=== PATIENT | female | born 1970 | race Caucasian/White ===

== ENCOUNTER → 2020-02-07 07:24 | Outpatient (CLI) | payer BC, SELFPAY ==
--- NOTE | ~2020-02-07 | XR_ITS ---
EXAMINATION: XR chest 2V 02/07/2020 07:41 INDICATION: Chest pain PROCEDURE: 2 view chest COMPARISON: No prior studies for comparison. FINDINGS: The lungs are clear. The cardiomediastinal silhouette is within normal limits. There are no pleural effusions. There is no pneumothorax suspected. IMPRESSION: 1: NO ACUTE CARDIOPULMONARY DISEASE. Reviewed, dictated and finalized at location B.
== END ==
PROVIDERS: PCP Internal Medicine; Visit Provider Clinical Nurse Specialist
DX: R07.89 Other chest pain (principal)
CPT/HCPCS: 71046

== ENCOUNTER 2020-02-16 09:45 | Outpatient (CLI) | payer BC, SELFPAY ==
--- NOTE | 2020-02-16 09:52 | ECG_ITS ---
Measurements Intervals [place] Rate: 64 P: 60 SD: 171 QRS: 42 QRSD: 84 T: 51 QT: 391 QTc: 403 Interpretive Statements SINUS RHYTHM NORMAL ECG Electronically Signed On 02-16-2020 10:07:39 CDT by Aris Jeronimo D.O.
== END 2020-02-16 09:46 | disposition home or self-care (01) ==
PROVIDERS: PCP Internal Medicine; Visit Provider Clinical Nurse Specialist
DX: R94.31 Abnormal electrocardiogram [ECG] [EKG] (principal)
CPT/HCPCS: 93005

== ENCOUNTER 2020-02-26 08:19 | Outpatient (CLI) | payer BC, SELFPAY ==
--- NOTE | 2020-02-26 08:33 | ECHO_ITS ---
Patient Info Name: Julieta Londono Age: 50 years : 1970 Gender: Female Ht: 64 in Wt: 180 lbs BSA: 1.95 m2 HR: 66 bpm BP: 120 / 83 mmHg Heart Rhythm: Sinus Rhythm Technical Quality: Good Exam Date: 02/26/2020 8:41 AM Exam Location: [facility] Pulmonary Patient Status: Outpatient Admit Date: 02/26/2020 Staff Ordering Physician: Cristina Reece Staple Shear Operator: Martha Mcqueen RDCS Attending Provider: Cristina Reece Referring Physician: Shanell STEPHENS; Exam Type: CA echo doppler color flow Study Info Indications - ABN EKG Complete two-dimensional, color flow and Doppler transthoracic echocardiogram is performed. Summary 1. Left ventricular chamber dimension is normal. 2. Left ventricular systolic function is normal, estimated at 60-65%. 3. The left ventricular diastolic function is normal. 4. E/e' 8 is minimally elevated. 5. There is trace mitral valve regurgitation. 6. No pulmonary hypertension, estimated pulmonary arterial systolic pressure is 23 mmHg. Left Ventricle E/e' 8 is minimally elevated. Left ventricular chamber dimension is normal. Left ventricular systolic function is normal, estimated at 60-65%. The left ventricular diastolic function is normal. Right Ventricle Right ventricular chamber dimension is normal. Right ventricular systolic function is normal. Left Atria Left atrial chamber dimension is normal. Right Atria Right atrial chamber dimension is normal. Aortic Valve The aortic valve is trileaflet. There is no aortic valve stenosis. There is no aortic valve regurgitation. Pulmonic Valve There is no pulmonic regurgitation. Mitral Valve There is no mitral valve stenosis. There is trace mitral valve regurgitation. Tricuspid Valve There is no tricuspid valve regurgitation. No pulmonary hypertension, estimated pulmonary arterial systolic pressure is 23 mmHg. Pericardium/Pleural There is no pericardial effusion. Inferior Vena Cava Normal inferior vena cava with >50% collapse upon inspiration consistent with normal right atrial pressure, 5 mmHg. Aorta The aortic root size at the sinus of Valsalva is normal. Left Ventricular Outflow Tract Name Value Normal LVOT 2D LVOT Diameter 2.0 cm LVOT Doppler LVOT Peak Gradient 4 mmHg LVOT Mean Gradient 2 mmHg LVOT VTI 19 cm LVOT VTI/AV VTI Ratio 0.9 LVOT Stroke Volume 62 ml LVOT CO 13.2 l/min LVOT CI 6.8 l/min/m2 Pulmonic Valve Name Value Normal PV Doppler PV Peak Gradient 2 mmHg Mitral Valve Name Value
--- NOTE | 2020-02-26 08:33 | EST_ITS ---
Patient Info Name: Julieta Londono Age: 50 years : 1970 Gender: Female Ht: 64 in Wt: 180 lbs BSA: 1.95 m2 Exam Date: 02/26/2020 9:56 AM Exam Location: [facility] Stress Patient Status: Outpatient Admit Date: 02/26/2020 Staff Ordering Physician: Cristina Reece Attending Provider: Cristina Reece Exercise Technologist: Mery Iraheta RDCS Exercise Physician: Aris Jeronimo DO Exam Type: CA stress test treadmill Study Info Indications R94.31 - Abnormal electrocardiogram ECG EKG A treadmill exercise stress test was performed. Summary 1. 1. Negative Jackson exercise stress test for ischemic ST changes by ECG criteria. 2. 2. Good functional capacity, achieving 10 METs of workload. 3. 3. Appropriate HR response to exercise. 4. 4. Appropriate HR recovery at 1 minute post exercise. 5. 5. No imaging with stress testing. 6. 6. Patient informed of the above results. Protocol: [place] Stress ECG Details Stage: REST Duration (min): 7 min : 34 sec Speed (mph): 0.0 Grade (%): 0 HR (bpm): 62 SBP (mmHg): 119 DBP (mmHg): 54 METS: --- Stage: REST Duration (min): 8 min : 41 sec Speed (mph): 0.0 Grade (%): 0 HR (bpm): 70 SBP (mmHg): 119 DBP (mmHg): 54 METS: --- Stage: STAGE 1 Duration (min): 1 min : 0 sec Speed (mph): 1.7 Grade (%): 10 HR (bpm): 89 SBP (mmHg): 119 DBP (mmHg): 54 METS: --- Stage: STAGE 1 Duration (min): 2 min : 0 sec Speed (mph): 1.7 Grade (%): 10 HR (bpm): 95 SBP (mmHg): 119 DBP (mmHg): 54 METS: --- Stage: STAGE 1 Duration (min): 3 min : 0 sec Speed (mph): 1.7 Grade (%): 10 HR (bpm): 96 SBP (mmHg): 161 DBP (mmHg): 76 METS: --- Stage: STAGE 2 Duration (min): 1 min : 0 sec Speed (mph): 2.5 Grade (%): 12 HR (bpm): 108 SBP (mmHg): 161 DBP (mmHg): 76 METS: --- Stage: STAGE 2 Duration (min): 2 min : 0 sec Speed (mph): 2.5 Grade (%): 12 HR (bpm): 118 SBP (mmHg): 156 DBP (mmHg): 83 METS: --- Stage: STAGE 2 Duration (min): 3 min : 0 sec Speed (mph): 2.5 Grade (%): 12 HR (bpm): 117 SBP (mmHg): 156 DBP (mmHg): 83 METS: --- Stage: STAGE 3 Duration (min): 1 min : 0 sec Speed (mph): 3.4 Grade (%): 14 HR (bpm): 129 SBP (mmHg): 151 DBP (mmHg): 91 METS: --- Stage: STAGE 3 Duration (min): 2 min : 0 sec Speed (mph): 3.4 Grade (%): 14 HR (bpm): 139 SBP (mmHg): 151 DBP (mmHg): 91 METS: --- Stage: STAGE 3 Duration (min): 3 min : 0 sec Speed (mph): 3.4 Grade (%): 14 HR (bpm): 149 SBP (mmHg): 159 DBP (mmHg): 91 METS: --- Stage: RECOVERY Duration (min): 0 min : 59 sec Speed (mph): 0.0 Grade (%): 0 HR (bpm): 131 SBP (mmHg): 159 DBP (mmHg): 91 METS: --- Stage: RECOVERY Duration (min): 1 min : 59 se
== END 2020-02-26 08:20 | disposition home or self-care (01) ==
PROVIDERS: PCP Internal Medicine; Visit Provider Clinical Nurse Specialist
DX: R94.31 Abnormal electrocardiogram [ECG] [EKG] (principal)
CPT/HCPCS: 93017; 93306

== ENCOUNTER 2020-03-12 02:02 | Outpatient (CLI) | payer BC, SELFPAY ==
[2020-03-12 18:53] LABS: SARS-CoV-2 RNA PCR Negative
== END 2020-03-12 02:03 | disposition home or self-care (01) ==
LOC: ANHCOVIDDT 02:02
PROVIDERS: PCP Internal Medicine; Visit Provider Internal Medicine Gastroenterology
DX: Z01.812 Encounter for preprocedural laboratory examination (principal); Z20.828 Contact with and (suspected) exposure to other viral communicable diseases
CPT/HCPCS: 87635; C9803; U0003

== ENCOUNTER 2020-03-14 00:41 | Day surgery (SDC) | payer BC, SELFPAY ==
[2020-03-06 15:33] VITALS: BMI 18.9
[2020-03-14 09:34] VITALS: BP 118/80; PULSE 59; RESP 16; TEMP 36.6; O2SAT 99; BMI 31.0
--- NOTE | 2020-03-14 09:42 | PM.HPGS ---
History of Present Illness History of Present Illness Consent: Risks, benefits, and alternatives have been discussed and questions answered. Patient agrees to proceed with procedure. Chief complaint: Reflux Narrative: Julieta Londono is a 50 year old W female referred for EGD secondary to chronic acid reflux disease. Patient with water brash. He says this is worse when she bends over. She does have the head of bed elevated does any prior to recumbency. She had been on Prilosec [id number] this did not work anymore and she was switched to Pepcid. She denies any dysphagia odynophagia. She has no known food allergies. She has never had EGD in the past. She had a colonoscopy 5 years ago which was normal. Patient did have cardiac evaluation which was negative. [facility] Past Medical History Medical History Chronic GERD Headache, migraine History of hemorrhoids Iron deficiency anemia Shingles Surgical History Surgical History H/O tubal ligation H/O: hysterectomy Family History Family History (Updated 02/05/20 @ 16:17 by Brittney Duenas CMA) Father Hyperlipidemia Dementia Social History Social History Smoking status: Never smoker Alcohol intake: current Meds Home Medications and Allergies Home Medications Medication Instructions Recorded Confirmed Type cetirizine 10 mg tablet 10 mg PO DAILY 02/05/20 03/06/20 History famotidine 20 mg tablet 20 mg PO DAILY #90 tablet 02/06/20 03/06/20 Rx topiramate 50 mg tablet 50 mg PO DAILY #90 tablet 02/06/20 03/06/20 Rx sumatriptan succinate 100 mg PO .COMPLEX PRN 03/06/20 03/06/20 History Allergies Allergy/AdvReac Type Severity Reaction Status Date / Time No Known Allergies Allergy Unknown Verified 03/14/20 09:32 Vital Signs Vital Signs - 24 hr 03/14/20 09:34 Temperature 36.6 C Pulse Rate 59 L Respiratory Rate 16 Blood Pressure 118/80 Pulse Oximetry 99 Exam Const: Orientation/consciousness: patient oriented x3 Resp: Auscultation: clear to auscultation bilaterally Cardio: Rate: regular rate Rhythm: regular rhythm Heart sounds: no murmurs GI: GI Palp: Yes Soft to palpation, No Tenderness to palpation present (GI), Yes No hepatosplenomegaly present and No Palpable mass present Auscultation: normal bowel sounds Neuro: General: patient oriented x3 and no focal motor deficits Extrem: General: no pedal edema Assessment and Plan Additional Plan EGD for evaluation refractory gastroesophageal reflux disease
[2020-03-14] MEDS: LACTATED RINGERS 1,000 ML 150 ML IV CONT (09:50)
--- NOTE | 2020-03-14 10:13 | WPDANESEPPF ---
Anes - Initial Pre Proc Eval Procedure: Operation Date: 03/14/20 10:00 Proposed Procedures p Esophagogastroduodenoscopy - Vlad Sanford MD Date/Time: 03/14/20 10:13 Surgeon: Vlad Sanford MD Pre Op Diagnosis: Reflux Patient Data Age: 50 Gender: F Height: 5 ft 4 in Weight: 82 kg Last Vital Signs Temp 97.9 F 03/14/20 09:34 Pulse 59 L 03/14/20 09:34 Resp 16 03/14/20 09:34 BP 118/80 03/14/20 09:34 Pulse Ox 99 03/14/20 09:34 Allergies Allergy/AdvReac Type Severity Reaction Status Date / Time No Known Allergies Allergy Unknown Verified 03/14/20 09:32 Home Medications Medication Instructions Recorded Confirmed Type cetirizine 10 mg tablet 10 mg PO DAILY 02/05/20 03/06/20 History famotidine 20 mg tablet 20 mg PO DAILY #90 tablet 02/06/20 03/06/20 Rx topiramate 50 mg tablet 50 mg PO DAILY #90 tablet 02/06/20 03/06/20 Rx sumatriptan succinate 100 mg PO .COMPLEX PRN 03/06/20 03/06/20 History Patient hx anesthesia problems: none Family hx anesthesia problems: none PMFSH Past Medical History Medical History Chronic GERD Headache, migraine History of hemorrhoids Iron deficiency anemia Shingles Surgical History Surgical History H/O tubal ligation H/O: hysterectomy Family History Family History (Updated 02/05/20 @ 16:17 by Brittney Duenas CMA) Father Hyperlipidemia Dementia Social History Social History Smoking status: Never smoker Alcohol intake: current Anes - Eval Final PreProcedure Day of Procedure 03/14/20 10:13 Patient weight: obese Heart: regular rate and rhythm Lungs: clear to auscultation Airway: Mallampati scale class II Neurological: alert and oriented Last oral intake: >/= 8 hours ASA classification: II Emergent: no Anesthetic plan: proceed Anesthesia type and monitoring: general GIVS and standard monitoring Informed Consent: The patient's anesthetic plan and its attendant risks and benefits were discussed with the patient/family/POA. Questions were solicited and answers provided to the satisfaction of the patient/family/POA.
[2020-03-14] MEDS: BENZOCAINE (*SP) 60 ML SPRAY CAN (HURRICAINE) 1 SPRAY MUCOUS MEM (10:14)
[2020-03-14 10:29] VITALS: BP 104/64; PULSE 63; RESP 16; O2SAT 98
[2020-03-14 10:39] VITALS: BP 104/69; PULSE 54; RESP 16; O2SAT 100
[2020-03-14 10:49] VITALS: BP 108/74; PULSE 54; RESP 16; O2SAT 100
== END 2020-03-14 11:00 | disposition home or self-care (01) ==
PROVIDERS: PCP Internal Medicine; Visit Provider Internal Medicine Gastroenterology
PROC: 0DJ08ZZ Inspection of Upper Intestinal Tract, Via Natural or Artificial Opening Endoscopic (ICD-10-PCS; CPT 43235; principal; 2020-03-14 10:00)
DX: K21.0 Gastro-esophageal reflux disease with esophagitis (principal); K29.50 Unspecified chronic gastritis without bleeding; K25.9 Gastric ulcer, unspecified as acute or chronic, without hemorrhage or perforation; E66.9 Obesity, unspecified; Z68.31 Body mass index [BMI] 31.0-31.9, adult
CPT/HCPCS: 43239; 87081; 88305; J2704; J7120

== ENCOUNTER 2020-12-11 13:02 | Outpatient (CLI) | payer BC, SELFPAY ==
--- NOTE | ~2020-12-11 | MR_ITS ---
EXAMINATION: MR brain/brain stem wo/w con DATE: 12/11/2020 14:42 INDICATION: Headache. TECHNIQUE: Magnetic resonance imaging (MRI) of the brain and brainstem was performed without and with 16 mL MultiHance intravenous contrast. Sequences included sagittal and axial T1-weighted FSE, axial diffusion-weighted FS EPI, axial T2*-weighted GRE, axial T2-weighted FLAIR Propeller, and axial T2-we ighted Propeller. Postcontrast sequences included axial and coronal T1-weighted FSE. Apparent diffusi on coefficient (ADC) maps were created. COMPARISON: None. FINDINGS: There is no intracranial hemorrhage, acute infarction, or abnormal intracranial mass lesion . The ventricles are normal in size. The orbits are normal. The paranasal sinuses are clear. The mast oid air cells are normal. IMPRESSION: 1. Normal brain. Reviewed, dictated and finalized at location A. IMPRESSION: 1. Normal brain.
[2020-12-11 13:55] LABS: Estimated Glomerular Filt Rate > 60
== END 2020-12-11 13:03 | disposition home or self-care (01) ==
PROVIDERS: PCP Internal Medicine; Visit Provider Nurse Practitioner
DX: R51.9 Headache, unspecified (principal)
CPT/HCPCS: 70553; A9577

== ENCOUNTER 2020-12-13 16:06 | Outpatient (CLI) | payer BC, SELFPAY ==
--- NOTE | ~2020-12-13 | XR_ITS ---
EXAMINATION:XR_CERV2-3V_CR DATE: 12/13/2020 16:30 INDICATION: Cervicalgia TECHNIQUE: AP, lateral, lateral swimmers and odontoid views of the cervical spine are provided. COMPARISON: None FINDINGS: There are 2 mm of retrolisthesis of C5 on C6. The odontoid is intact. No fracture is identi fied. The vertebral body heights are maintained. There is moderate loss of intervertebral disc space height at C5-6. There is mild facet and uncovertebral joint osteoarthritis at C5-6. Prevertebral soft tissues are normal. IMPRESSION: 1. Moderate cervical spondylosis at C5-6. Reviewed, dictated and finalized at location A.
== END 2020-12-13 16:07 | disposition home or self-care (01) ==
PROVIDERS: PCP Internal Medicine; Visit Provider Nurse Practitioner
DX: M47.892 Other spondylosis, cervical region (principal)
CPT/HCPCS: 72040

== ENCOUNTER → 2021-04-30 08:33 | Outpatient (CLI) | payer BC, SELFPAY ==
--- NOTE | ~2021-04-30 | XR_ITS ---
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 There are some corresponding compensatory changes in the apposing T9 and T11 v ertebrae. There is mild levoscoliosis of the lower thoracic spine. No fracture or dislocation or bone destruction is evident. The thoracic pedicles are intact. No savannah gloria soft tissue thickening. There is prominent degenerative disc disease at C5-6. There is minimal degenerative spurring of the thoracic spine. IMPRESSION: Congenital T10 butterfly vertebra Minimal degenerative change of the thoracic spine Prominent degenerative disc disease at C5-6 Reviewed, dictated and finalized at location A.
== END ==
PROVIDERS: PCP Internal Medicine; Visit Provider Clinical Nurse Specialist
DX: M51.34 Other intervertebral disc degeneration, thoracic region (principal); M50.322 Other cervical disc degeneration at C5-C6 level
CPT/HCPCS: 72072

== ENCOUNTER → 2021-05-09 09:58 | Outpatient (CLI) | payer BC, SELFPAY ==
--- NOTE | ~2021-05-09 | MR_ITS ---
EXAMINATION: MR thoracic spine wo con DATE: 05/09/2021 11:01 INDICATION: Thoracic back pain. TECHNIQUE: Magnetic resonance imaging (MRI) of the thoracic spine was performed without intravenous c ontrast. Sagittal localizer T1-weighted FSE of the cervical spine was obtained. Thoracic spine sequen lo included sagittal T2-weighted FSE, sagittal T1-weighted FSE, sagittal STIR FSE, and axial T2-weig hted FSE. COMPARISON: Thoracic spine MRI 03/16/2013, radiographs 04/30/2021 FINDINGS: There is 11 degrees levoscoliosis of lower thoracic spine. There is 2 mm anterolisthesis of T2 on T3. T10 is a butterfly segment. There is chronic anterior wedging of T10. There is mildly decr eased disc height at T9-T10 and T10-T11, which may be developmental. The discs do not extend beyond t he endplate margins. There is multilevel facet joint osteoarthritis bilaterally, mild at most levels. On the right, there is mild neural foraminal stenosis at T2-T3, T3-T4, and T10-T11. On the left, the re is mild neural foraminal stenosis at T10-T11. No central canal stenosis. The spinal cord signal in tensity is normal. Again seen is a 7 mm cyst in the liver. IMPRESSION: 1. Mild thoracic spondylosis. 2. T10 butterfly segment. 3. Levoscoliosis of lower thoracic spine. Reviewed, dictated and finalized at location A.
== END ==
PROVIDERS: PCP Internal Medicine; Visit Provider Clinical Nurse Specialist
DX: M47.814 Spondylosis without myelopathy or radiculopathy, thoracic region (principal); M48.04 Spinal stenosis, thoracic region; M41.9 Scoliosis, unspecified; K76.89 Other specified diseases of liver
CPT/HCPCS: 72146

== ENCOUNTER 2021-06-07 07:22 | Outpatient (CLI) | payer BC, SELFPAY ==
--- NOTE | ~2021-06-07 | MR_ITS ---
EXAMINATION: MR lumbar spine wo con DATE: 06/07/2021 08:12 INDICATION: Low back pain. TECHNIQUE: Magnetic resonance imaging (MRI) of the lumbar spine was performed without intravenous con trast. Sequences included sagittal T2-weighted FSE, sagittal T2-weighted FS FSE, sagittal T1-weighted FSE, and axial T2-weighted FSE. COMPARISON: Lumbar spine MRI 10/30/2015 FINDINGS: There is 13 degrees dextroscoliosis of lumbar spine. T10 is a butterfly segment. There is m ildly decreased disc height at L3-L4. The distal spinal cord signal intensity is normal. The conus me dullaris is at L1. There is a 1.7 cm cyst in right kidney. The following disc levels are specifically discussed: L1-L2: The disc does not extend beyond the endplate margin. There is mild bilateral facet joint osteo arthritis. There is no neural foraminal stenosis. There is no central canal stenosis. L2-L3: The disc is bulging and has an annular fissure. There is no facet joint osteoarthritis. There is mild bilateral neural foraminal stenosis. There is no central canal stenosis. L3-L4: The disc is bulging and has an annular fissure. There is mild bilateral facet joint osteoarthr itis. There is mild bilateral neural foraminal stenosis. There is no central canal stenosis. L4-L5: The disc is bulging and has an annular fissure. There is moderate bilateral facet joint osteoa rthritis. There is mild bilateral neural foraminal stenosis. There is no central canal stenosis. L5-S1: The disc does not extend beyond the endplate margin. There is severe right and moderate left f acet joint osteoarthritis. There is no neural foraminal stenosis. There is no central canal stenosis. IMPRESSION: 1. Mild lumbar spondylosis, slightly worsened from 10/30/2015. 2. Lumbar dextroscoliosis. Reviewed, dictated and finalized at location A. AL WORK ADMINISTRATOR
== END 2021-06-07 07:23 | disposition home or self-care (01) ==
PROVIDERS: PCP Internal Medicine; Visit Provider Nurse Practitioner Family
DX: M47.896 Other spondylosis, lumbar region (principal)
CPT/HCPCS: 72148

== ENCOUNTER 2022-06-25 09:00 | Outpatient (CLI) | payer BC, SELFPAY ==
[2022-06-25 18:54] LABS: Basophils Absolute Auto 0.1 K/mm3 (0.0-0.1); Eosinophils Absolute Auto 0.2 K/mm3 (0-0.3); Eosinophils Percent Auto 3.2 % (0-4.4); Hematocrit 40.6 % (37.0-47.0); Hemoglobin 13.5 g/dL (12.0-15.0); Immature Granulocyte Absolute 0.02 K/mm3 (0.00-0.031); Immature Granulocyte Percent A 0.3 % (0-0.5); Lymphocytes Absolute Auto 2.23 K/mm3 (0.9-3.2); Lymphocytes Percent Auto 37.9 % (18.3-44.2); Mean Corpuscular HGB Conc 33.3 g/dl (32-36); Mean Corpuscular Hemoglobin 31.3 pg (26-34); Mean Platelet Volume 11.1 fl (7.4-10.4); Monocytes Absolute Auto 0.5 K/mm3 (0.1-0.6); Monocytes Percent Auto 8.2 % (2.6-8.5); Neutrophils Absolute Auto 2.9 K/mm3 (1.3-6.7); Neutrophils Percent Auto 49.4 % (45.5-73.1); Platelet Count Result 287 k/mm3 (150-375); Red Blood Count 4.32 M/mm3 (4.2-5.4); Red Cell Distribution Width 12.8 % (11.5-14.5); White Blood Count 5.9 K/mm3 (4.5-10.0)
[2022-06-25 18:58] LABS: Alanine Aminotransferase 15 U/L (6-35); Albumin Level 4.2 g/dL (3.5-5.1); Alkaline Phosphatase 52 U/L (38-126); Anion Gap 6 mmol/L (8-16); Aspartate Amino Transferase 40 U/L (14-36); Bilirubin,Total 0.4 mg/dL (0.2-1.3); Blood Urea Nitrogen 10 mg/dL (7-17); Carbon Dioxide 26 mmol/L (22-30); Chloride 105 mmol/L (98-107); Cholesterol 191 mg/dL (0-200); Estimated Glomerular Filt Rate > 60; Glucose 89 mg/dL (65-110); HDL Direct 59 mg/dL; Potassium 4.1 mmol/L (3.4-5.0); Sodium 137 mmol/L (137-145); Triglycerides 124 mg/dL (<150)
[2022-06-25 19:08] LABS: LDL Cholesterol Direct 84 mg/dL
== END 2022-06-25 09:01 | disposition home or self-care (01) ==
LOC: ANHGOSHLAB 09:03
PROVIDERS: PCP Internal Medicine; Visit Provider Clinical Nurse Specialist
DX: Z13.228 Encounter for screening for other metabolic disorders (principal); Z13.220 Encounter for screening for lipoid disorders; G43.909 Migraine, unspecified, not intractable, without status migrainosus; E55.9 Vitamin D deficiency, unspecified
CPT/HCPCS: 36415; 80053; 80061; 82306; 84443; 85025

== ENCOUNTER 2023-07-30 13:12 | Outpatient (CLI) | payer BC, SELFPAY ==
--- NOTE | ~2023-07-30 | MM_ITS ---
EXAMINATION: MM screening fabiana BI w mauro HISTORY: Screening mammogram TECHNIQUE: Craniocaudal and mediolateral oblique 3-D tomosynthesis images were obtained and synthetic 2-D images were generated. CAD analysis was submitted and interpreted. COMPARISON: No prior mammogram is available for comparison at this institution. BREAST PARENCHYMAL COMPOSITION: There are scattered areas of fibroglandular density. FINDINGS: RIGHT BREAST: No suspicious mass, calcification, or architectural distortion are identified to sugges t malignancy. LEFT BREAST: An asymmetry is present in the anterior third of the outer breast 5 cm from the nipple o n the craniocaudal view. There is also an asymmetry in the middle third of the upper breast 8 cm from the nipple on the mediolateral oblique view. IMPRESSION: 1. Left breast asymmetry which may represent the patient's baseline however no comparison is currentl y available. 2. Comparison with prior mammograms is necessary. BI-RADS Category 0: Incomplete: Needs comparison with prior mammograms. Reviewed, dictated and finalized at location A. PAPER COPY EDITOR IMPRESSION: 1. Left breast asymmetry which may represent the patient's baseline however no comparison is currently available. 2. Comparison with prior mammograms is necessary. BI-RADS Category 0: Incomplete: Needs comparison with prior mammograms.
== END 2023-07-30 13:13 | disposition home or self-care (01) ==
LOC: CHSIMG 13:14
PROVIDERS: PCP Internal Medicine; Visit Provider Obstetrics & Gynecology
DX: Z12.31 Encounter for screening mammogram for malignant neoplasm of breast (principal); R92.8 Other abnormal and inconclusive findings on diagnostic imaging of breast
CPT/HCPCS: 77063; 77067

== ENCOUNTER 2023-10-07 08:43 | Outpatient (CLI) | payer OTHER, SELFPAY ==
--- NOTE | ~2023-10-07 | MMUS_ITS ---
EXAMINATION: MM diagnostic fabiana LT w mauro, US breast LT limited HISTORY: Abnormal outside mammogram TECHNIQUE: Additional 3-D tomosynthesis images of the left breast were performed and synthetic 2-D im ages were generated. CAD analysis was submitted and interpreted. High resolution upper outer and lowe r-outer quadrant left breast ultrasound was performed. COMPARISON: August 30, 2023 bilateral screening mammogram BREAST PARENCHYMAL COMPOSITION: The breasts are heterogeneously dense, which may obscure small masses . FINDINGS: MAMMOGRAPHIC FINDINGS: Approximately 7.5 x 12.5 mm incompletely circumscribed mass is suggested in the inner aspect of the l ower outer quadrant, with adjacent biopsy marker. The heterogeneously dense stroma may obscure additional masses. Ultrasound examination was performed. ULTRASOUND: 12:00 3 cm from nipple: 8.4 x 5.9 x 6.1 mm incompletely circumscribed irregular hypoechoic lesion wit h mild posterior shadowing. Ultrasound-guided biopsy is recommended. 3:00 7 cm from nipple: 5.6 x 5.5 x 6.7 mm irregular poorly circumscribed hypoechoic lesion with promi nent posterior shadowing. Ultrasound-guided biopsy is recommended. 6:00 7 cm from nipple: Roughly 7 mm wide and even deeper antiparallel irregular hypoechoic poorly cir cumscribed lesion with prominent posterior shadowing. Ultrasound-guided biopsy is recommended. IMPRESSION: 1. Irregular incompletely circumscribed shadowing hypoechoic masses at 12:00, 3:00 and 6:00 2. Ultrasound-guided biopsy of all 3 lesions is recommended BI-RADS category 4, suspicious findings. Dr. Seaman telephoned the report and ultrasound-guided biopsy recommendations for left breast 12:00 and 3:00 and 6:00 lesions on 10/07/2023 at 1014 hours to Juliet Licensed Esthetician. Reviewed, dictated and finalized at location A. IMPRESSION: 1. Irregular incompletely circumscribed shadowing hypoechoic masses at 12:00, 3 :00 and 6:00 2. Ultrasound-guided biopsy of all 3 lesions is recommended BI-RADS category 4, suspicious findings. Dr. Seaman telephoned the report and ultrasound-guided biopsy recommendations for left breast 12:00 and 3:00 and 6:00 lesions on 10/07/2023 at 1014 hours to Nicolasa rosario Licensed Esthetician.
== END 2023-10-07 08:44 | disposition home or self-care (01) ==
LOC: CHSIMG 08:45
PROVIDERS: PCP Internal Medicine; Visit Provider Obstetrics & Gynecology
DX: R92.8 Other abnormal and inconclusive findings on diagnostic imaging of breast (principal)
CPT/HCPCS: 76642; 77061; 77065; G0279

== ENCOUNTER 2023-10-22 08:08 | Outpatient (CLI) | payer OTHER, SELFPAY ==
--- NOTE | ~2023-10-22 | MR_ITS ---
EXAMINATION: MR cervical spine wo con DATE: 10/22/2023 12:45 INDICATION: Neck pain. TECHNIQUE: Magnetic resonance imaging (MRI) of the cervical spine was performed without intravenous c ontrast. COMPARISON: Cervical spine MRI 01/20/2012 FINDINGS: There is 7 degrees dextrocurvature of cervical spine. There is 2 mm retrolisthesis of C5 on C6 and C6 on C7. Vertebral body heights are normal. There is severely decreased disc height at C5-C6 and moderately decreased disc height at C6-C7. The spinal cord signal intensity is normal. The follo wing disc levels are specifically discussed: C2-C3: The disc does not extend beyond the endplate margin. There is no uncovertebral joint osteoarth ritis. There is severe right and moderate left facet joint osteoarthritis. There is no neural foramin al stenosis. There is no central canal stenosis. C3-C4: The disc does not extend beyond the endplate margin. There is no uncovertebral joint osteoarth ritis. There is mild right and severe left facet joint osteoarthritis. There is mild left neural fora rober stenosis. There is no central canal stenosis. C4-C5: The disc does not extend beyond the endplate margin. There is no uncovertebral joint osteoarth ritis. There is mild right and moderate left facet joint osteoarthritis. There is no neural foraminal stenosis. There is no central canal stenosis. C5-C6: The disc is bulging. There is severe bilateral uncovertebral joint osteoarthritis. There is no facet joint osteoarthritis. There is mild bilateral neural foraminal stenosis. There is mild central canal stenosis. C6-C7: This is bulging. There is severe bilateral uncovertebral joint osteoarthritis. There is severe bilateral facet joint osteoarthritis. There is mild bilateral neural foraminal stenosis. There is mi ld central canal stenosis. C7-T1: The disc does not extend beyond the endplate margin. There is no uncovertebral joint osteoarth ritis. There is severe bilateral facet joint osteoarthritis. There is mild bilateral neural foraminal stenosis. There is no central canal stenosis. IMPRESSION: 1. Severe cervical spondylosis, worsened from 01/20/2012. Reviewed, dictated and finalized at location A.
== END 2023-10-22 08:09 ==
LOC: GOSHIMG 08:09
PROVIDERS: PCP Internal Medicine; Visit Provider Nurse Practitioner Family
DX: M47.892 Other spondylosis, cervical region (principal)
CPT/HCPCS: 72141

== ENCOUNTER 2023-11-17 08:13 | Outpatient (CLI) | payer OTHER, SELFPAY ==
--- NOTE | ~2023-11-17 | US_ITS ---
US breast cyst asp add LT, US_BCALIMG_US DATE: 11/17/2023 10:44 INDICATION: Patient presented for biopsy of masses at 12:00, 3:00 and 6:00 reported on 10/07/2023 misael espana left breast ultrasound examination TECHNIQUE: Initial ultrasound imaging confirmed oval approximately 6.5 mm circumscribed lesion at 12: 00 3 cm from nipple and 6 mm circumscribed hypoechoic lesion at 3:00 7 cm from nipple. The previously noted at 6:00 lesion was not confirmed on the current examination. The lesions appeared likely cystic, and I explained to the patient that I would attempt to aspirate t hese and if the aspiration were unsuccessful, then we proceeded with biopsy immediately afterward. The purpose of the procedure, technique and potential complications were discussed with the patient. Following sterile preparation of the skin of the left breast and placement of sterile drapes, the 12: 00 lesion was localized sonographically. 1% lidocaine local anesthetic was administered to the skin a nd 1% lidocaine with epinephrine was inserted to the deeper subcutaneous tissues. An 18-gauge spinal needle was introduced from a lateral approach into the lesion and the lesion spontaneously resolved. Subsequent sonographic scanning revealed no evidence of the lesion. The 3:00 lesion was localized sonographically. 1% lidocaine was administered to the skin. 1% lidocain e with epinephrine was administered to the deeper subcutaneous tissues. An 18-gauge spinal needle was introduced into the lesion with ultrasound guidance and a this lesion resolves as well, with no trac e of the lesion after puncture by the spinal needle. COMPARISON: 10/07/2023 limited left breast ultrasound IMPRESSION: Resolution of 12:00 and 3:00 lesions after ultrasound-guided puncture by spinal needle Recommendation: 6 month follow-up ultrasound imaging to document continued absence of the 3 lesions s uggested on 10/07/2023 BI-RADS Category 3: Probably benign Reviewed, dictated and finalized at [facility]. Reviewed, dictated and finalized at location A. IMPRESSION: Resolution of 12:00 and 3:00 lesions after ultrasound-guided punctu re by spinal needle Recommendation: 6 month follow-up ultrasound imaging to document continued abse nce of the 3 lesions suggested on 10/07/2023 BI-RADS Category 3: Probably benign
== END 2023-11-17 08:14 | disposition home or self-care (01) ==
PROVIDERS: PCP Internal Medicine; Visit Provider Surgery
DX: N63.20 Unspecified lump in the left breast, unspecified quadrant (principal); N60.02 Solitary cyst of left breast; R92.8 Other abnormal and inconclusive findings on diagnostic imaging of breast
CPT/HCPCS: 19000; 19001; 76942

== ENCOUNTER 2023-11-24 12:36 | Emergency (ER) | payer OTHER, SELFPAY ==
[2023-11-24 12:42] VITALS: BP 125/88; PULSE 70; RESP 16; TEMP 36.8; O2SAT 98
--- NOTE | 2023-11-24 12:58 | ED.URI ---
HPI - URI/Sore Throat General Chief Complaint: Upper Respiratory Infection Stated Complaint: SCRATCHY THROAT/ROOF OF MOUTH/CONGESTION/FEELS HOT Time Seen by Provider: 11/24/23 13:03 Source: patient and RN notes reviewed Mode of arrival: ambulatory Limitations: no limitations History of Present Illness HPI Narrative: Patient presents today complaining of 2+ week history of scratchy throat, chills, sweats, sinus pressure, cough. Denies fever or shortness of breath. She has tried abtm-rhb-vvmommj medication for the past week without much relief. Related Data Home Medications Medication Instructions Recorded Confirmed cetirizine 10 mg tablet (Wal-Zyr 10 mg PO DAILY 02/05/20 11/24/23 (cetirizine)) gabapentin 300 mg capsule 300 mg PO TID 06/23/22 11/24/23 Allergies Allergy/AdvReac Type Severity Reaction Status Date / Time No Known Allergies Allergy Unknown Verified 11/24/23 12:52 Review of Systems Review of Systems: CONSTITUTIONAL: Denies body aches, fever. + chills, sweats EYES: Denies visual changes, redness, or discharge. ENT: Denies rhinorrhea, sore throat, or otalgia.+ sinus pressure, congestion, scratchy throat CARDIOVASCULAR: Denies chest pain, palpitations, or edema. RESPIRATORY: Denies dyspnea.+ cough GASTROINTESTINAL: Denies abdominal pain, nausea, vomiting, or diarrhea. GENITOURINARY: Denies dysuria or hematuria. SKIN: Denies rash, itching, or wounds. MUSCULOSKELETAL: Denies back pain, joint pain, or myalgia. NEUROLOGIC: Denies headache, numbness, tingling, or weakness. PSYCH: Denies depression or anxiety. [facility]LY [facility], [facility] Past Medical History Medical History Chronic GERD Chronic neck pain Headache, migraine History of hemorrhoids Iron deficiency anemia Shingles Surgical History Surgical History H/O tubal ligation H/O: hysterectomy Family History Family History Father Hyperlipidemia Dementia Social History Social History Social History: Caffeine-coffee/soda Smoking status: Never smoker Alcohol intake: current Alcohol use details: Rarely Substance use: never Substance use type: does not use Lack of Transportation: No Lack of Food: Never True Current Housing: I Have Housing Concerned About Future Housing: No Difficulty Paying Gas/Electric Bills: No Difficulty Paying for Meds: No Currently Unemployed: No Education: Bachelor's Degree Difficulty w/ Childcare or Family Care: No Comments At time of signature, I have reviewed and agree with nursing past medical, surgical, social and family history unless otherwise noted. Please see nursing chart for further information. There is no relevant family history pertinent to the presenting complaint Exam Narrative: GENERAL: Well-appearing, well-nourished, and in no acute distress. HEAD: Normocephalic, atraumatic. EYES: EOMI. No redness or drainage. Conjunctivae normal. ENT: Mucous membranes pink and moist. Nares mildly congested. Bilateral frontal and maxillary sinus tenderness. No rhinorrhea. TMs normal bilaterally. Throat normal. Uvula midline. NECK: Normal AROM. Supple. No lymphadenopathy. CHEST: No respiratory distress. Clear to auscultation. HEART: Regular rate and rhythm. No murmur appreciated. EXTREMITIES: Normal range of motion. No edema. SKIN: Warm, dry, no rash. Capillary refill normal. Normal skin turgor. NEURO: No focal deficits. Alert and oriented x3. Gait steady. PSYCH: Normal affect. No signs of depression or anxiety. Course Course Level of Care: Express Care Visit Vital Signs Vital signs: Vital Signs Temperature 98.3 F 11/24/23 12:42 Pulse Rate 70 11/24/23 12:42 Respiratory Rate 16 11/24/23 12:42 Blood Pressure 125/88 11/24/23
== END 2023-11-24 13:02 | disposition home or self-care (01) ==
PROVIDERS: Emergency Provider Nurse Practitioner; PCP Internal Medicine
DX: J32.9 Chronic sinusitis, unspecified (principal); K21.9 Gastro-esophageal reflux disease without esophagitis
CPT/HCPCS: 99213; G0463

== ENCOUNTER 2024-05-05 10:33 | Outpatient (CLI) | payer OTHER, SELFPAY ==
--- NOTE | ~2024-05-05 | US_ITS ---
US breast LT limited 05/05/2024 10:52 Indication: Follow-up left breast masses following recent aspiration Procedure: High-resolution Limited ultrasound of the left breast Comparison: Comparison to multiple prior studies sequentially, with oldest reviewed study dated 10/06. Findings: Normal heterogeneous echotexture in the areas of mass seen on prior study. No suspicious so lid or cystic masses in the left breast. Impression: 1: Normal limited left breast ultrasound. Routine yearly screening mammogram and regular clinical breast examination are recommended. BI-RADS CATEGORY 1 - NEGATIVE Reviewed, dictated and finalized at location [facility]. Impression: 1: Normal limited left breast ultrasound. Routine yearly screening mammogram and regular clinical breast examination are recommended. BI-RADS CATEGORY 1 - NEGATIVE
== END 2024-05-05 10:34 | disposition home or self-care (01) ==
LOC: CHSIMG 10:36
PROVIDERS: PCP Internal Medicine; Visit Provider Obstetrics & Gynecology
DX: R92.8 Other abnormal and inconclusive findings on diagnostic imaging of breast (principal); N63.20 Unspecified lump in the left breast, unspecified quadrant
CPT/HCPCS: 76642

== ENCOUNTER 2024-08-31 08:49 | Outpatient (CLI) | payer BC, SELFPAY ==
--- NOTE | ~2024-08-31 | MMUS_ITS ---
EXAMINATION: MM diagnostic fabiana BI w mauro, US breast LT limited HISTORY: Follow-up left breast abnormality. TECHNIQUE: Additional 3-D tomosynthesis images of the breasts were performed and synthetic 2-D images were generated. CAD analysis was submitted and interpreted. High resolution Limited left breast ultr asound was performed. COMPARISON: Comparison to multiple prior studies sequentially, with oldest reviewed study dated 11/2023. BREAST PARENCHYMAL COMPOSITION: Not dense: There are scattered areas of fibroglandular density. FINDINGS: MAMMOGRAPHIC FINDINGS: The breasts are stable. No new masses, calcifications or architectural distortion are identified to s uggest malignancy. There is a tissue marker in the lower outer quadrant of the left breast, middle th ird. ULTRASOUND: Limited left breast ultrasound: Normal heterogeneous echotexture without focal solid or cystic mass. IMPRESSION: 1. No evidence for malignancy in either breast. 2. Routine yearly screening mammogram and regular clinical breast examination are recommended. BI-RADS Category 1: Negative Reviewed, dictated and finalized at location B. OR OFFICE SUPPORT ASSISTANT SOSA IMPRESSION: 1. No evidence for malignancy in either breast. 2. Routine yearly screening mammogram and regular clinical breast examination a re recommended. BI-RADS Category 1: Negative
--- OUTSIDE RECORDS SUMMARY | 2024-08-31 09:00 | XMS_ITS | Clinical Summary ---
Author Organization [facility] Address [address] [place] [address] Care Team Providers Care Bundle Breaker Name Role Phone Fazal Gonzalez DO Primary Care Provider [phone] Allergies No known active allergies Medications SUMAtriptan 100 MG tablet Take 100 mg by mouth 2 (two) times daily as needed for Migraine. Take 1 tablet at onset of symptoms, may take 1 tablet 2 hours later. Max of 2 tablets in 24-hour period. Active topiramate 100 MG tablet Take 100 mg by mouth 2 (two) times daily. Active omeprazole 40 MG capsule Take 40 mg by mouth daily. Active Family History Medical History Relation Comments Hypertension Father Hypertension Maternal Grandfather Cancer Maternal Grandmother Hypertension Mother Hypertension Paternal Grandfather Cancer Paternal Grandmother Relation Status Comments Father Maternal Grandfather Maternal Grandmother Mother Paternal Grandfather Paternal Grandmother Social History Tobacco Use Types Packs/Day Years Used Date Smoking Tobacco: Never Smokeless Tobacco: Never Alcohol Use Standard Drinks/Week Comments Yes 0 (1 standard drink = 0.6 oz pur e alcohol) occasional Comments No Sex and Gender Information Value Date Recorded Sex Assigned at Not on file Legal Sex Female 5:05 PM CDT Gender Identity Not on file Sexual Orientation Not on file Last Filed Vital Signs Vital Sign Reading Time Taken Comments Blood Pressure 112/79 01/12/2020 6:45 AM CDT Pulse 64 01/12/2020 3:27 AM CDT Temperature 36.7 C (98 F) 01/12/2020 3:27 AM CDT Respiratory Rate 18 01/12/2020 3:27 AM CDT Oxygen Saturation 98% 01/12/2020 4:00 AM CDT Inhaled Oxygen Concentration - - Weight 82.6 kg (182 lb) 01/12/2020 3:27 AM CDT Height 162.6 cm (5' 4 ) 01/12/2020 3:27 AM CDT Body Mass Index 31.24 01/12/2020 3:27 AM CDT Plan of Treatment Health Maintenance Due Date Last Done Comments Colorectal Cancer Screening Colonoscopy (10 Years) 1970 Annual Physical 1973 Hepatitis C 01/15/1988 DTaP, Tdap and Td Vaccines ( 1 - Tdap) 1989 Hepatitis B Vaccines (1 of 3 - 19+ 3-dose series) 1989 Zoster Vaccines (1 of 2) 01/15/2020 Mammogram Screening 07/15/2022 07/15/2020, 06/26/2020 COVID-19 Vaccine (2023-2 5 season) 2024 Influenza Adult (#1) 2024 Meningococcal B Vaccine Aged Out No l onger eligible based on patient's age to complete this topic Meningococcal Vaccine Aged Out No ben desi eligible based on patient's age to complete this topic Pneumococcal Vaccine: Pediatrics (0 to 5 Years) and At-Risk Patients (6 to 64 Years) Aged Out No longer eligible b ased on patient's age to complete this topic RSV Immunizations Under 20 Months Aged Out No longer eligible b ased on patient's age to complete this topic Procedures Procedure Name Priority Date/Time Associated Diagnosis Comments MG DIAGNOSTIC RT DIGI Routine 07/15/2020 10:25 AM BORING MACHINE OPERATOR HELPER Abnormal mammogram from Last 3 Months or Most Recently Relevant to Health Maintenance Results * MG DIAGNOSTIC RT DIGI (07/15/2020 10:25 AM BORING MACHINE OPERATOR HELPER) Anatomical Region Laterality Modality Breast Right Mammography 07/15/2020 1:19 PM BORING MACHINE OPERATOR HELPER Impressions 07/15/2020 1:34 PM BORING MACHINE OPERATOR HELPER IMPRESSION: Masses identified at screening are simple cysts. No mammographically or sonographically suspicious abnormality is identified. Routine follow-up in one year would now seem adequate. Recommendation: 1: Routine screening mammogram Bilateral in 1 Year Overall assessment: ACR BI-RADS Category 2 - Benign. Return for Routine Follow-Up: Yes Interpreted By: Masood Gonzales MD, 07/15/2020 1:19 PM Narrative 07/15/2020 1:34 PM BORING MACHINE OPERATOR HELPER Examination: Digital right diagnostic mammogram with CAD. [id number] Clinical history: Follow-up, abnormal screening mammogram. History of breast cysts. Comparison: 06/26/2020. Technique: True lateral and spot compression CC and MLO right digital mammograms. The exam was interpreted with the use of a computer-aided detection (CAD) system. Tissue density: The breast tissue contains scattered fibroglandular densities. Findings: The patient returned for additional diagnostic imaging to further evaluate the anterior masses identified at screening. The additional views confirm the presence of the findings which lie near the nipple axis on the true lateral view projecting approximately 3 and 4.5 cm deep to the nipple. The more anterior of the 2 masses measures approximately 1.2 cm in greatest dimension. The other measures approximately 1.6 cm in greatest dimension. There is no associated architectural distortion or microcalcification. Examination: Right breast ultrasound. Technique:Grayscale and color Doppler images. Findings: Survey of the subareolar/periareolar region was performed encompassing the broad region of interest. There is a 1 cm in greatest dimension simple cyst lying superficially and a 1.3 cm in greatest dimension simple cyst deeper in the breast judged concordant with the mammographic findings. An additional 4 mm in greatest dimension mammographically occult simple cyst is also present. [place] appearing tissue architecture is otherwise demonstrated. No other sonographically discrete finding is identified. No sonographically suspicious abnormality is identified. Based on these findings, routine mammographic follow-up in one year would now seem adequate. These findings were discussed with the patient. us Pilo Simeon MD MAMMO Final Resu lt from Last 3 Months or Most Recently Relevant to Health Maintenance Insurance Advance Directives Documents on File Type Date Recorded Patient Investigation Division Captain Expl anation Guardianship - Permanent 04/13/2014 12:00 AM PHYSICIAN CERTIFICATION STATEMENT Care Teams Bundle Breaker Relationship Specialty Start Date End Date Fazal Gonzalez DO [address] [facility] [address] [place] [address] PCP - General INTERNAL MEDICINE 07/15/20
== END 2024-08-31 08:50 | disposition home or self-care (01) ==
LOC: CHSIMG 08:51
PROVIDERS: PCP Internal Medicine; Visit Provider Surgery
DX: N63.20 Unspecified lump in the left breast, unspecified quadrant (principal); R92.8 Other abnormal and inconclusive findings on diagnostic imaging of breast
CPT/HCPCS: 76642; 77062; 77066; G0279

== ENCOUNTER 2024-11-14 14:33 | Emergency (ER) | payer BC, SELFPAY ==
[2024-11-14 14:46] VITALS: BP 119/88; PULSE 87; RESP 16; TEMP 36.6; O2SAT 98
--- NOTE | 2024-11-14 15:32 | ED_ITS ---
HPI - General Adult General Chief complaint: Upper Respiratory Infection Stated complaint: Strep Symptoms Source: patient Mode of arrival: ambulatory Limitations: no limitations History of Present Illness HPI narrative: Pt presents for evaluation of sinus symptoms. Symptom onset two weeks ago. Symptoms started after some dental work after which she took a flight. She thought her symptoms were related to the dental work or the flight but symptoms have persisted. She reports pressure in her ears, sinus congestion, hot flashes, and chills. She was evaluated at urgent care and was told her symptoms were related to allergies. She took edkj-oqo-djicnge allergy medication and cough and cold medication which seemed to cause some nausea. The medications did not seem to help with her symptoms. She has a history of sinus infections and this feels similar. Related Data Home Medications ?Medication ?Instructions ?Recorded ?Confirmed ?Last Taken ?Type cetirizine 10 mg tablet (Wal-Zyr 10 mg PO DAILY 02/05/20 08/31/24 03/13/20 History (cetirizine)) gabapentin 300 mg capsule 300 mg PO TID 06/23/22 11/14/24 Unknown History ergocalciferol (vitamin D2) 1,250 11/14/24 Unknown History mcg (50,000 unit) capsule onabotulinumtoxinA 200 unit unit 11/14/24 Unknown History solution for injection (Botox) Allergies Allergy/AdvReac Type Severity Reaction Status Date / Time No Known Allergies Allergy Unknown Verified 11/14/24 15:02 Review of Systems Review of Systems: CONSTITUTIONAL: reports hot flashes and chills EYES: Denies visual changes, redness, or discharge. ENT: reports sinus congestion pressure in the ears CARDIOVASCULAR: Denies chest pain, palpitations, or edema. RESPIRATORY: Denies cough or dyspnea. GASTROINTESTINAL: Reports nausea. Denies abdominal pain, vomiting, or diarrhea. GENITOURINARY: Denies dysuria or hematuria. SKIN: Denies rash or itching. MUSCULOSKELETAL: Denies back pain, joint pain, or myalgia. NEUROLOGIC: Denies headache, numbness, dizziness, or weakness. PSYCHIATRIC: Denies anxiety or depression. [facility] Past Medical History Medical History Upper respiratory infection Chronic neck pain Shingles Headache, migraine Iron deficiency anemia Chronic GERD History of hemorrhoids Surgical History Surgical History H/O tubal ligation H/O: hysterectomy Family History Family History Father Hyperlipidemia Dementia Social History Social History Social History: Caffeine-coffee/soda Smoking status: Never smoker Alcohol intake: current Alcohol use details: Rarely Substance use: never Substance use type: does not use Lack of Transportation: No Lack of Food: Never True Current Housing: I Have Housing Concerned About Future Housing: No Difficulty Paying Gas/Electric Bills: No Difficulty Paying for Meds: No Currently Unemployed: No Education: Bachelor's Degree Difficulty w/ Childcare or Family Care: No Exam Narrative: GENERAL: Well-appearing, well-nourished, and in no acute distress. HEAD: Normocephalic, atraumatic. EYES: PERRLA and EOMI. ENT: Nares clear, no rhinorrhea or epistaxis. Mucous membranes moist. Oropharynx without tonsillar hypertrophy exudate or other lesions. Bilateral TMs pearly nunez nonbulging NECK: Supple. No adenopathy or masses. No carotid bruits or JVD CHEST: Clear to auscultation. No respiratory distress. No wheezes rales or rhonchi HEART: Regular rate and rhythm. No murmur heard. Normal peripheral pulses. ABDOMEN: Soft, nontender, nondistended, normal active bowel sounds. EXTREMITIES: Normal range of motion. No edema. SKIN: Warm, dry, no rash. NEURO: No focal deficits. Alert and oriented x3. PSYCH: Normal mood and affect. Course Course Emergency Course: this is a 54-year-old female who presented for evaluation of sinus symptoms. She meets criteria for bacterial sinusitis based upon duration of time in which she has been symptomatic. Will discharge with Augmentin. She requested Diflucan as she develops vaginal candidiasis with abx. She should follow up with primary provider and go to the ER for worsening symptoms. Pt in agreement with plan of care. Level of Care: Express Care Visit Vital Signs Vital signs: Vital Signs Temperature 36.6 C 11/14/24 14:46 Pulse Rate 87 11/14/24 14:46 Respiratory Rate 16 11/14/24 14:46 Blood Pressure 119/88 11/14/24 14:46 Pulse Oximetry 98 11/14/24 14:46 Temperature 36.6 C 11/14/24 14:46 Pulse Rate 87 11/14/24 14:46 Respiratory Rate 16 11/14/24 14:46 Blood Pressure 119/88 11/14/24 14:46 Pulse Oximetry 98 11/14/24 14:46 Medical Decision Making Vital Signs Vital Signs: Vital Signs Temperature 36.6 C 11/14/24 14:46 Pulse Rate 87 11/14/24 14:46 Respiratory Rate 16 11/14/24 14:46 Blood Pressure 119/88 11/14/24 14:46 Pulse Oximetry 98 11/14/24 14:46 Temperature 36.6 C 11/14/24 14:46 Pulse Rate 87 11/14/24 14:46 Respiratory Rate 16 11/14/24 14:46 Blood Pressure 119/88 11/14/24 14:46 Pulse Oximetry 98 11/14/24 14:46 Discharge Plan Discharge Clinical Impression: Sinusitis Patient Disposition: Home Condition: Stable Instructions: Antibiotic Form, Sinusitis (ED) Patient Language: Macedonian Prescriptions: New amoxicillin-pot clavulanate 875-125 mg tablet 1 tablet PO Q12H Qty: 20 0RF fluconazole 150 mg tablet 150 mg PO ONCE Qty: 1 0RF No Action ergocalciferol (vitamin D2) 1,250 mcg (50,000 unit) capsule Botox 200 unit recon soln gabapentin 300 mg capsule 300 mg PO TID cyclobenzaprine 5 mg tablet 5 mg PO TID PRN (Reason: muscle spasm) Qty: 30 1RF Rx Instructions: Do not take while driving. May cause drowsiness. cetirizine [Wal-Zyr (cetirizine)] 10 mg tablet 10 mg PO DAILY Qulipta 60 mg tablet 60 mg PO DAILY Qty: 30 0RF Rx Instructions: LAST REFILL UNTIL SEEN sumatriptan succinate 100 mg tablet See Rx Instructions .ROUTE .COMPLEX Qty: 9 5RF Dose Instruction: TAKE 1 TABLET BY MOUTH NEEDED FOR MIGRAINES. MAX DOSE OF 1 TABLET Rx Instructions: TAKE 1 TABLET BY MOUTH NEEDED FOR MIGRAINES. MAX DOSE OF 1 TABLET cholecalciferol (vitamin D3) 1,250 mcg (50,000 unit) tablet 1,250 mcg PO WEEKLY Qty: 8 0RF Follow-up/Referrals: Ramez Rizo MD [Physician] - Time of Disposition: 15:27
== END 2024-11-14 15:32 | disposition home or self-care (01) ==
PROVIDERS: Emergency Provider Nurse Practitioner
DX: J32.9 Chronic sinusitis, unspecified (principal); K21.9 Gastro-esophageal reflux disease without esophagitis
CPT/HCPCS: 99213; G0463

== ENCOUNTER 2025-01-02 07:16 | Outpatient (CLI) | payer BC, SELFPAY ==
--- NOTE | ~2025-01-02 | MR_ITS ---
MRI of the cervical spine Clinical History: Cervicalgia Technique: Axial T2-weighted and gradient images, and sagittal T1-weighted, T2-weighted, and STIR angelina ges were acquired. COMPARISON: 10/22/2023 Findings: No acute fracture seen. Osseous alignment is unchanged from prior exam. Stable 2 mm retroli sthesis of C5 over C6, and of C6 over C7. No suspicious bone marrow signal abnormality seen. At C2-C3, there is no significant disc bulge or herniation. No spinal canal stenosis, cord compressio n, or neural foraminal narrowing. There is mild facet arthropathy. At C3-C4, there is minimal disc ossify complex with left facet arthropathy. There is mild left neural foraminal narrowing. No canal stenosis, cord compression, or right neural foraminal narrowing. At C4-C5, there is minimal disc bulge and minimal facet arthropathy. No central canal stenosis, cord compression, or neural foraminal narrowing. At C5-C6, there is moderate to advanced degenerative disc narrowing. There is minimal disc bulge. No spinal canal stenosis or cord compression. There is moderate right neural foraminal narrowing and pro bable minimal left neural foraminal narrowing. At C6-C7, there is advanced degenerative disc narrowing. There is minimal disc bulge. There is mild b ilateral neural foraminal narrowing. No bryan canal stenosis or cord compression. No abnormal signal seen in the spinal cord. Paravertebral soft tissues are unremarkable. Impression: Moderate degenerative spondylosis particularly at C5-C6 and C6-C7, stable from prior exam. Mild degenerative change in the remainder of the cervical spine. Reviewed, dictated and finalized at [facility]. Impression: Moderate degenerative spondylosis particularly at C5-C6 and C6-C7, stable from prior exam. Mild degenerative change in the remainder of the cervical spine.
== END 2025-01-02 07:17 | disposition home or self-care (01) ==
LOC: MICIMG 07:17
PROVIDERS: PCP Nurse Practitioner Family; Visit Provider Nurse Practitioner Family
DX: M50.323 Other cervical disc degeneration at C6-C7 level (principal)
CPT/HCPCS: 72141

== ENCOUNTER 2025-06-04 15:36 | Outpatient (CLI) | payer BC, SELFPAY ==
--- NOTE | ~2025-06-04 | XR_ITS ---
XR shoulder LT min 2V HISTORY: Pain in left shoulder x 4 months . COMPARISON: None. FINDINGS: External and internal rotated views of the left shoulder demonstrate no acute fracture or dislocation. Acromioclavicular joint and glenohumeral joint are unremarkable. IMPRESSION: Radiographic examination of the left shoulder demonstrates no acute fracture or dislocation. Reviewed, dictated and finalized at location S. ATOR INSTALLER
== END 2025-06-04 15:37 | disposition home or self-care (01) ==
LOC: GOSHIMG 15:37
PROVIDERS: PCP Nurse Practitioner Family
DX: M25.512 Pain in left shoulder (principal)
CPT/HCPCS: 73030